=== PATIENT | female | born 1955 | race Caucasian/White ===

== ENCOUNTER → 2016-12-04 16:30 | Outpatient (CLI) | payer BC | END | disposition home or self-care (01) | LOC: D.MAMMO 10:30 | DX: Z12.31 Encounter for screening mammogram for malignant neoplasm of breast (principal) ==

== ENCOUNTER → 2017-01-14 16:32 | Outpatient (CLI) | payer BC | END | disposition home or self-care (01) | LOC: D.MAMMO 01-11 13:30 → D.US 01-11 14:30 → D.MAMMO 08:30 | DX: R92.8 Other abnormal and inconclusive findings on diagnostic imaging of breast (principal) ==

== ENCOUNTER → 2018-02-04 09:42 | Outpatient (CLI) | payer BC | END | disposition home or self-care (01) | LOC: D.MAMMO 09:42 | DX: Z12.31 Encounter for screening mammogram for malignant neoplasm of breast (principal) ==

== ENCOUNTER → 2018-03-25 09:58 | Outpatient (CLI) | payer BC | END | disposition home or self-care (01) | LOC: D.RAD 09:58 | DX: K21.9 Gastro-esophageal reflux disease without esophagitis (principal) ==

== ENCOUNTER → 2018-04-08 10:56 | Outpatient (CLI) | payer BC | END | disposition home or self-care (01) | LOC: D.US 10:56 | DX: R10.9 Unspecified abdominal pain (principal) ==

== ENCOUNTER 2018-05-09 08:05 | Day surgery (SDC) | payer BC ==
[~2018-05-09] VITALS: Ht 154.9 cm; Wt 62.6 kg
[~2018-05-09 08:05] MED LIST: OMEPRAZOLE40 MG PO
[2018-05-09 08:35] LABS: HEMATOCRIT 39.7 % (36.0-48.0); HEMOGLOBIN 13.5 g/dL (12-16); MCV 85.2 fL (80.0-100.0); MEAN PLATELET VOLUME 10.3 fL (7.4-10.4); RBC 4.66 10x6/uL (4.00-5.40); RDW 13.1 % (11.5-14.5); WBC 4.5 10x3/uL (4.8-10.8)
[2018-05-09] MEDS ORDERED: PROTONIX40 MG PO (08:56)
[2018-05-09] MEDS ORDERED: RESTORIL15 MG PO (08:56)
[2018-05-09 09:05] VITALS: BP 162/79; Ht 154.9 cm; Wt 62.6 kg
[2018-05-09] MEDS ORDERED: HYDROCODON-ACE1 EAC7 PO (11:01)
== END 2018-05-09 14:40 | disposition home or self-care (01) ==
LOC: D.OPS 08:05 → D.PAN 10:30 → D.OPS 10:30
PROVIDERS: Anesthesiology
DX: K80.10 Calculus of gallbladder with chronic cholecystitis without obstruction (principal); Z01.812 Encounter for preprocedural laboratory examination

== ENCOUNTER 2019-08-02 09:00 | Outpatient (CLI) | payer BC ==
[2018-05-09 09:05] VITALS: BMI 26.1
[~2019-08-02 09:00] MED LIST changes: +HYDROCODON-ACE1 EAC7 PO; +PROTONIX40 MG PO; +RESTORIL15 MG PO
== END 2019-08-02 10:00 | disposition home or self-care (01) ==
LOC: D.MAMMO 09:00
PROVIDERS: ATTEND Nurse Practitioner
DX: N64.4 Mastodynia (principal)

== ENCOUNTER 2020-01-26 12:13 | Inpatient (IN) | payer BC ==
[~2020-01-26] VITALS: Ht 154.9 cm; Wt 66.7 kg
[2020-01-29] MEDS ORDERED: PRAVACHOL20 MG PO (13:51)
[2020-01-29] MEDS ORDERED: OMEPRAZOLE40 MG PO (13:52)
[2020-01-29 14:49] LABS: BASOPHILS 0.6 % (0-2); EOSINOPHILS 1.1 % (0-7); HEMATOCRIT 39.4 % (36.0-48.0); HEMOGLOBIN 13.3 g/dL (12-16); IMMATURE GRANULOCYTES 0.2 % (0-5); LYMPHOCYTES 27.3 % (15-50); MCH 28.7 pg (26.0-34.0); MCHC 33.8 g/dL (31.0-37.0); MCV 85.1 fL (80.0-100.0); MEAN PLATELET VOLUME 10.6 fL (7.4-10.4); MONOCYTES 4.6 % (2-11); NEUTROPHILS 66.2 % (40-80); PLATELET COUNT 183 10x3/uL (130-400); RBC 4.63 10x6/uL (4.00-5.40); RDW 13.3 % (11.5-14.5); WBC 5.5 10x3/uL (4.8-10.8)
[2020-01-29 15:03] LABS: CALCIUM 9.3 mg/dL (8.5-10.1); CARBON DIOXIDE 26.9 mmol/L (21.0-32.0); CREATININE - SERUM 0.9 mg/dL (0.6-1.3); POTASSIUM - SERUM 3.9 mmol/L (3.5-5.1)
--- NOTE | 2020-01-31 08:57 | NUR ---
4698-phoned behavioral health for suicide screening, spoke with Melonie.
--- NOTE | 2020-01-31 09:19 | NUR ---
DR. DOSHI NOTIFIED AND REVIEWED PT'S BEHAVIOR AND ASSESSMENT RESULTS. PT IS A LOW RISK PER DR DOSHI. DR. DOSHI STATED TO GIVE RESOURCES TO PT AT TIME OF DISCHARGE. NO FURTHER ORDERS AT THIS TIME. RESOURCES REVIEWED WITH PT AND SHE VERBALIZED INSTRUCTIONS.
[2020-01-31 09:26] VITALS: BP 163/83; BMI 27.8
--- NOTE | 2020-01-31 16:33 | NUR ---
EPIDURAL INFUSING UPON ENTRY TO PACU - RATE 6 ML/HR WITH 4ML BOLUS AVAILABLE Q20MIN
--- NOTE | 2020-01-31 16:43 | NUR ---
1640 - PHASE 1 COMPLETE, NO BED AVAILABLE ON FLOOR. SWITCHING TO PHASE 2 PROTOCOL PENDING BED AVAILABILITY.
[2020-01-31 17:33] VITALS: BP 126/60
--- NOTE | 2020-01-31 17:54 | NUR ---
RECEIVED PT FROM [facility], PT IS AWAKE AND ALERT AND ORIENTED. [facility], STARTED PT FLUIDS AND ABX. GAVE PT ICE AND POPSICLE, IV INTACT, NO OTHER NEEDS AT THIS TIME, CONTINUE WITH PLAN OF CARE
[2020-01-31 17:56] VITALS: BP 160/48; BMI 27.8
[2020-01-31 17:59] LABS: BASOPHILS 0.1 % (0-2); EOSINOPHILS 0.1 % (0-7); HEMATOCRIT 36.6 % (36.0-48.0); HEMOGLOBIN 12.2 g/dL (12-16); IMMATURE GRANULOCYTES 0.1 % (0-5); LYMPHOCYTES 7.4 % (15-50); MCH 28.6 pg (26.0-34.0); MCHC 33.3 g/dL (31.0-37.0); MCV 85.7 fL (80.0-100.0); MEAN PLATELET VOLUME 10.4 fL (7.4-10.4); MONOCYTES 2.1 % (2-11); NEUTROPHILS 90.2 % (40-80); PLATELET COUNT 179 10x3/uL (130-400); RBC 4.27 10x6/uL (4.00-5.40); RDW 13.2 % (11.5-14.5)
[2020-01-31 18:08] LABS: ANION GAP 9.9 mmol/L (8-16); BILIRUBIN - TOTAL 0.49 mg/dL (0.2-1.3); CALCIUM 8.4 mg/dL (8.5-10.1); MAGNESIUM - SERUM 1.8 mg/dL (1.8-2.4); PHOSPHOROUS 3.7 mg/dL (2.5-4.9); POTASSIUM - SERUM 3.9 mmol/L (3.5-5.1); PROTEIN - SERUM 6.5 g/dL (6.4-8.2)
[2020-01-31 20:00] VITALS: BP 112/60
[2020-02-01 04:00] VITALS: BP 91/50
[2020-02-01 08:17] VITALS: BP 101/59
--- NOTE | 2020-02-01 08:43 | NUR ---
PT LYING IN BED, AWAKE AND ALERT, LAP SITES CDI, FAMILY AT BEDSIDE, PT IS PASSING GAS, NO S/SX OF DISTRESS, CL IN REACH, CONTINUE WITH PLAN OF CARE
--- NOTE | 2020-02-01 10:04 | NUR ---
BROOKE JEFFREY INQUIRED ON WHEN PHYSICAL THERAPY WOULD BE CONSULTED, ADVISED PATIENT AND FAMILY THAT WHILE SHE STILL HAS EPIDURAL IN PATIENT WILL BE ON BEDREST FOR SAFETY PRECAUTIONS, FAMILY VERBALIZED UNDERSTANDING
[2020-02-01 11:00] VITALS: BP 93/51
[2020-02-01 11:14] VITALS: Ht 154.9 cm; Wt 66.7 kg
[2020-02-01 13:52] VITALS: BP 103/667
[2020-02-01 20:00] VITALS: BP 102/49
[2020-02-02 04:00] VITALS: BP 93/52
[2020-02-02 08:47] VITALS: BP 124/67
--- NOTE | 2020-02-02 09:36 | NUR ---
ALERT AND ORIENTED. LUNGS CLEAR BILATERALLY. HEART SOUNDS S1 AND S2 HEARD IN ALL POZO. BOWEL SOUNDS ACTIVE X 4. LAP SITES C/D/I. SKIN INTACT WITHOUT REDNESS. IV TO RIGHT HAND PATENT WITHOUT REDNESS. GOMES PATENT DRAINING YELLOW URINE. DENIES NEEDS. BED LOW. CALL SORENSEN AND PRSONAL ITEMS IN REACH. FAMILY AT BEDSIDE. WILL CONTINUE TO MONITOR.
[2020-02-02 12:38] VITALS: BP 104/56
--- NOTE | 2020-02-02 12:53 | MORECARE ---
CASE MANAGEMENT DISCHARGE SUMMARY PATIENT: YUSEF MOHR UNIT: [id number] ADM DATE: 01/31/20 AGE: 64 : 57 SEX: F ROOM/BED: D.2227 AUTHOR: PEYMAN,DOC PHYSICIAN: REFERRING PHYSICIAN: NOEMY MOREAU MD DATE OF SERVICE: 02/02/20 Discharge Plan Patient Name: YUSEF MOHR Facility: [facility]:[place] : 1955 Planned Disposition: Home Anticipated Discharge Date: Discharge Date: Expected LOS: Initial Reviewer: [email or web address] Initial Review Date: 02/02/2020 Generated: 02/02/20 1:52 pm Comments DCP- Discharge Planning Updated by [email or web address]: Natalia Hernandez on 02/02/20 11:[address] Patient Name: YUSEF MOHR Admission Status: Elective Accout number: [id number] Admission Date: 01-31-2020 : 1955 Admission Diagnosis:BENIGN NEOPLASM OF CECUM Attending: NOEMY MOREAU Current LOS: 2 Anticipated DC Date: Planned Disposition: Home Primary Insurance: [employer] OUT OF STATE Discharge Planning Comments: CM met with patient to complete initial dc planning assessment. CM educated patient on the CM role and verbal consent given by patient to complete assessment. Patient lives at home with her spouse. States they may go to stay with her daughter, Tosin, for a few days when discharged. States her daughter does not have any steps to get into the home or in the home. States she is completely independent with all her care. States her family will take her home on discharge. I discussed availability of rehab, home health and DME, she denies needs at this time. No needs identified. CM will continue to follow and assist with discharge planning/needs. Sanitary Engineering Teacher: Natalia Hernandez DCPIA - Discharge Planning Initial Assessment Updated by [email or web address]: Natalia Hernandez on 02/02/20 12:49 pm * Is the patient Alert and Oriented? Yes * How many steps to enter\exit or inside your home? 12/0 * PCP Shira Huber * Pharmacy [facility] on [address] * Preadmission Environment Home with Family * ADLs Independent * Equipment None * List name and contact numbers for known caregivers / representatives who currently or will assist patient after discharge: Bryce - spouse - [phone] Tosin Mack - DTR - [phone] * Verbal permission to speak to the caregivers and representatives has been obtained from the patient. Yes * Community resources currently utilized None * Additional services required to return to the preadmission environment? No * Can the patient safely return to the preadmission environment? Yes * Has this patient been hospitalized within the prior 30 days at any hospital? No Patient Name: YUSEF MOHR Page [id number] at 1253 All edits/amendments must be made on the electronic document DICTATION DATE: 02/02/20 125 ENGINE ROOM HELPER: SCOTT 02/02/20 125 RPT#: [id number] DC DATE: STATUS: ADM IN [facility] [address] [place] [address] END OF REPORT
--- NOTE | 2020-02-02 15:30 | NUR ---
PATIENT REQUESTING GOMES TO BE REMOVED. BLADDER TRAINING INITIATED.
--- NOTE | 2020-02-02 16:23 | NUR ---
PATIENT STATES FEELS URGE TO VOID. GOMES UNCLAMPED. URINE DRAINED. DR MOREAU PAGED TO SEE IF OK TO REMOVE GOMES.
--- NOTE | 2020-02-02 16:44 | NUR ---
GOMES REMOVED PER ORDER.
[2020-02-02 17:16] VITALS: BP 101/56
--- NOTE | 2020-02-02 17:24 | NUR ---
RESTING IN BED. DENIES NEEDS. WILL CONTINUE TO MONITOR.
--- NOTE | 2020-02-02 18:01 | NUR ---
PATIENT VOIDED IN TOILET AND HAD BM POST GOMES REMOVAL.
[2020-02-02 20:00] VITALS: BP 121/58
[2020-02-03 04:00] VITALS: BP 134/65
[2020-02-03 08:33] VITALS: BP 139/72
--- NOTE | 2020-02-03 10:22 | NUR ---
RESTING IN BED, NO DISTRESS NOTED, ABD DRESSING DRY AND INTACT, LAP SITES CLOSED, IV INFUSING, CONT TO MONITOR NAUSEA AND BM
[2020-02-03 12:28] VITALS: BP 115/79
--- NOTE | 2020-02-03 14:15 | NUR ---
PT HAVING GREENISH WATERY STOOLS, CONT TO MONITOR
[2020-02-03 16:39] VITALS: BP 125/80
[2020-02-03 19:46] VITALS: BP 122/64
[2020-02-04 01:20] VITALS: BP 121/60
[2020-02-04 05:12] VITALS: BP 115/64
--- NOTE | 2020-02-04 10:16 | NUR ---
UP IN CHAIR, IN ROOM, IV INFUSING, NO DISTRESS NOTED, APPETITE FAIR
[2020-02-04 12:06] VITALS: BP 136/77
[2020-02-04 14:44] VITALS: BP 131/82
[2020-02-04 16:09] VITALS: BP 138/75
--- NOTE | 2020-02-04 18:30 | NUR ---
D/C IV, TIP INTACT, MANUELA WELL,
--- NOTE | 2020-02-04 18:50 | NUR ---
REVIEWED D/C ORDERS, RX PROVIDED FOR NORCO AND COLACE, TAKEN FROM HOSPITAL PER W/C
--- NOTE | 2020-02-06 08:03 | MORECARE ---
CASE MANAGEMENT DISCHARGE SUMMARY PATIENT: YUSEF MOHR UNIT: [id number] ADM DATE: 01/31/20 AGE: 64 : 57 SEX: F ROOM/BED: D.2227 AUTHOR: PEYMAN,DOC PHYSICIAN: REFERRING PHYSICIAN: NOEMY MOREAU MD DATE OF SERVICE: 02/06/20 Discharge Plan Patient Name: YUSEF MOHR Facility: [facility]:[place] : 1955 Planned Disposition: Home Anticipated Discharge Date: Discharge Date: 02/04/2020 Expected LOS: 0 Initial Reviewer: [email or web address] Initial Review Date: 02/02/2020 Generated: 02/06/20 9:02 am Comments DCP- Discharge Planning Updated by [email or web address]: Natalia Hernandez on 02/02/20 11:[address] Patient Name: YUSEF MOHR Admission Status: Elective Accout number: [id number] Admission Date: 01-31-2020 : 1955 Admission Diagnosis:BENIGN NEOPLASM OF CECUM Attending: NOEMY MOREAU Current LOS: 2 Anticipated DC Date: Planned Disposition: Home Primary Insurance: [employer] OUT OF STATE Discharge Planning Comments: CM met with patient to complete initial dc planning assessment. CM educated patient on the CM role and verbal consent given by patient to complete assessment. Patient lives at home with her spouse. States they may go to stay with her daughter, Tosin, for a few days when discharged. States her daughter does not have any steps to get into the home or in the home. States she is completely independent with all her care. States her family will take her home on discharge. I discussed availability of rehab, home health and DME, she denies needs at this time. No needs identified. CM will continue to follow and assist with discharge planning/needs. Field Merchandiser: Natalia Hernandez DCPIA - Discharge Planning Initial Assessment Updated by [email or web address]: Natalia Hernandez on 02/02/20 12:49 pm * Is the patient Alert and Oriented? Yes * How many steps to enter\exit or inside your home? 12/0 * PCP Shira Huber * Pharmacy [facility] on [address] * Preadmission Environment Home with Family * ADLs Independent * Equipment None * List name and contact numbers for known caregivers / representatives who currently or will assist patient after discharge: Bryce - spouse - [phone] Tosin Mack - DTR - [phone] * Verbal permission to speak to the caregivers and representatives has been obtained from the patient. Yes * Community resources currently utilized None * Additional services required to return to the preadmission environment? No * Can the patient safely return to the preadmission environment? Yes * Has this patient been hospitalized within the prior 30 days at any hospital? No Last DP export: 02/02/20 11:53 a Patient Name: YUSEF MOHR Page 39312 at 0803 All edits/amendments must be made on the electronic document DICTATION DATE: 02/06/20801 INSURANCE CLAIMS ASSISTANT: SCOTT 02/06/20801 RPT#: [id number] DC DATE:02/04/20 STATUS: DIS IN [facility] [address] [place] [address] END OF REPORT
== END 2020-02-04 18:50 | disposition home or self-care (01) | DRG 331 ==
LOC: D.M2 01-31 08:00 → D.MS 01-31 08:10 → D.SDCHOLD 01-31 08:10 → D.M2 01-31 12:20 → D.MS 01-31 17:14
PROVIDERS: ADMIT Surgery; ATTEND Surgery
PROC: 0DTF0ZZ Resection of Right Large Intestine, Open Approach (ICD-10-PCS; principal; 2020-01-31 10:30)
DX: D12.0 Benign neoplasm of cecum (principal); E78.5 Hyperlipidemia, unspecified

== ENCOUNTER → 2020-08-20 15:00 | Outpatient (CLI) | payer BC ==
[2020-02-01 11:14] VITALS: BMI 27.7
[~2020-08-20 15:00] MED LIST changes: +PRAVACHOL20 MG PO
== END | disposition home or self-care (01) ==
LOC: D.MAMMO 15:00
PROVIDERS: ATTEND Nurse Practitioner
DX: Z12.31 Encounter for screening mammogram for malignant neoplasm of breast (principal)